=== PATIENT | female | born 1975 | race Caucasian/White ===

== ENCOUNTER → 2016-11-15 | Outpatient (CLI) | payer MEDICAID ==
[~2016-11-15] MED LIST: ACETAMINOPHEN500 M3 PO; BENZONATATE100 M1 PO; DIAZEPAM5 M1 PO; DICLOFENAC 50MG50 MG PO; DICYCLOMINE HCL20 MG PO; GABAPENTIN TAB600 MG PO; GABAPENTIN300 M1 PO; IBUPROFEN400 MG PO; LORTAB 5/500 501 TAB PO; MOTRIN800 MG PO; OXYCODONE HCL10 M1 PO; PANTOPRAZOLE SO40 M1 PO; PAROXETINE HCL20 MG NG; RANITIDINE 150150 MG PO; [UNRECOGNIZED DRUG - CODE] PO
--- NOTE | 2016-11-21 09:16 | RADIOLOGY REPORT PS360 ---
DIG MAMM-SCREEN BRANDT W/CAD CAD Screening COMPARISON: Digital right mammogram 12/13/2015 and 05/14/2016 and digital bilateral mammograms 11/10/2015 INDICATION: There is a history of breast cancer patient's paternal aunt and paternal grandmother both diagnosed in her 60s is been previous mammotome biopsy right breast TECHNIQUE: Standard CC and MLO images were obtained. R2 CAD reviewed. FINDINGS: There is a markedly dense and heterogenic parenchymal pattern lessening the sensitivity of mammography. There are couple of biopsy clips right breast and is a coarse appearing calcification right breast. There is no suspicious lesion and there are no suspicious microcalcifications. IMPRESSION: Diffusely dense parenchymal pattern no suspicious lesion seen recommend yearly follow-up BI-RADS CATEGORY: 2_Benign RECOMMENDED FOLLOWUP: 12M 12 MONTH FOLLOW-UP (A letter has been sent to the patient regarding results of the study.)
--- NOTE | 2016-11-26 12:57 | RADIOLOGY REPORT PS360 ---
US BREAST-RT COMPLETE W/AXILLA ORDERING PHYSICIAN : Venkata Vernon MD PATIENT AGE: 41 years GENDER: Female INDICATION: RT BREAST MASS nodules. Follow-up previous biopsy fibroadenoma biopsy at 11:00 TECHNIQUE: Entire breast ultrasound including survey right axillary region MW COMPARISON: Previous ultrasound 05/14/2016 FINDINGS 1:00 vague 7 mm length 3 mm mm height solid nodule or debris-filled cyst.-Behind nipple at Central breast 2:00.: Solid or semisolid 5.4 mm x 5.9 mm length. Behind nipple at Central breast 9:00 central breast 7 mm benign cyst 11:00 central breast. *1.1 cm solid nodule. This may correspond with the density seen at 12:00 on previous ultrasound May 2016. I believe this area was biopsied May 2014 is definitely smaller than it was on April and May 2014 prior ultrasound study 11:00 o'clock.Just deep to the above nodule is a second 4 mm x 9.5 mm length solid-appearing nodule but there is chest wall. I believe this was evident on last years study as well as 2013.. Warrants ongoing follow-up most likely benign but very slowly progressing fibroadenoma as well when compared to 2013. 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 1. The largest fibroadenoma was previously biopsied at 11 -12o'clock position left breast.. On today's study the postbiopsy residual fibroadenoma at 11:00 measures 1.1 cm & appears fairly stable since 2015. Immediately posterior to this is a very slowly progressing elongated solid nodule most compatible with fibroadenoma now measuring up to 9.5 mm length. Can be followed at this point this continues to progress but as if it does progressed over 1 cm of May warrant excisional biopsy of this entire complex 2. Note three Solid or semisolid nodules right breast... These may reflect early small fibroadenomas or possibly semisolid cyst. & Can be followed.:. Recommend bilateral mammogram with right breast ultrasound 6 months to follow/ further evaluate ... #1at 1 o'clock position deep breast;. 7 mm ... #2at 2:00 central breast less than 6 mm ... #3 just behind nipple with this area measured to 7.4 mm . BI-RADS 3-probably benign RECOMMEND: Bilateral mammogram 6 months to resume annual scheduled. Right breast ultrasound recommended at that time as well
== END ==
LOC: RAD 13:00
DX: N63 Unspecified lump in breast (principal)
CPT/HCPCS: G0202

== ENCOUNTER → 2017-08-14 | Outpatient (CLI) | payer MEDICAID ==
[~2017-08-14] MED LIST changes: +BUPRENORPHINE H1 TAB SL; +GABAPENTIN800 MG PO
[2017-08-14 16:56] LABS: HEMOGLOBIN 15.3 g/dL (12.2-16.2); LYMPH # 1.7 K/mm3 (0.7-4.5); LYMPH % 33.6 % (10-50.0)
[2017-08-14 18:52] LABS: BUN 8 mg/dL (7-18)
[2017-08-14 18:58] LABS: GFR (ESTIMATED) 91 ML/MIN (59-)
== END ==
LOC: LAB 16:09
PROVIDERS: Emergency Medicine
DX: Z00.00 Encounter for general adult medical examination without abnormal findings (principal); E55.9 Vitamin D deficiency, unspecified; Z79.899 Other long term (current) drug therapy